=== PATIENT | female | born 2000 | race Caucasian/White ===

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

== ENCOUNTER 2020-11-30 07:56 | Emergency (ER) | payer OTHER ==
[~2020-11-30] VITALS: Ht 167.6 cm; Wt 70.3 kg
[2020-11-30] MEDS ORDERED: ZITHROMAX500 MG PO (11:21)
[2020-11-30] MEDS ORDERED: OSEL75CA PO (11:21)
[2020-11-30] MEDS ORDERED: TUSSIN DM LIQU118 ML PO (11:21)
== END 2020-11-30 11:39 | disposition home or self-care (01) ==
LOC: ER 07:56
DX: J11.1 Influenza due to unidentified influenza virus with other respiratory manifestations (principal); B34.9 Viral infection, unspecified; Z11.52 Encounter for screening for COVID-19

== ENCOUNTER 2022-04-02 01:52 | Emergency (ER) | payer OTHER ==
[~2022-04-02] VITALS: Ht 167.6 cm; Wt 69.9 kg
[~2022-04-02 01:52] MED LIST: OSEL75CA PO; TUSSIN DM LIQU118 ML PO; ZITHROMAX500 MG PO
[2022-04-02] MEDS ORDERED: NORFLEX100MG PO (04:17)
[2022-04-02] MEDS ORDERED: KETO10TA2 PO (04:17)
== END 2022-04-02 04:55 | disposition home or self-care (01) ==
LOC: ER 01:52
DX: M94.0 Chondrocostal junction syndrome [Tietze] (principal); F41.9 Anxiety disorder, unspecified; E16.2 Hypoglycemia, unspecified; R07.89 Other chest pain

== ENCOUNTER 2022-04-05 13:50 | Emergency (ER) | payer OTHER ==
[~2022-04-05] VITALS: Ht 167.6 cm; Wt 69.9 kg
[~2022-04-05 13:50] MED LIST changes: +KETO10TA2 PO; +NORFLEX100MG PO
== END 2022-04-05 14:43 | disposition home or self-care (01) ==
LOC: ER 13:50
DX: M62.838 Other muscle spasm (principal)

== ENCOUNTER 2022-09-20 15:59 | Emergency (ER) | payer OTHER ==
[~2022-09-20] VITALS: Ht 167.6 cm; Wt 75.3 kg
== END 2022-09-20 23:33 | disposition home or self-care (01) ==
LOC: ER 15:59
DX: R42 Dizziness and giddiness (principal)